=== PATIENT | female | born 1965 | race Two or more races ===

== ENCOUNTER 2017-04-06 16:27 | Emergency (ER) | payer MEDICAID, OTHER ==
[~2017-04-06] VITALS: Ht 170.2 cm; Wt 72.6 kg
[~2017-04-06 16:27] MED LIST: ROSU10TA PO
--- NOTE | 2017-04-06 16:54 | NUR ---
Hep-Lock started; labs drawn and sent to lab.
--- NOTE | 2017-04-06 16:54 | NUR ---
The patient was brought by her friend to ER; the chief complaint of chest pain, which started an hour and a half ago.. The patient describes the pain as pressure-like; 5/10 in severity.
[2017-04-06] MEDS ORDERED: LORAZEPAM INJ 2 MG/ML VIAL IV ONE (17:00)
[2017-04-06] MEDS ORDERED: ONDANSETRON HCL/PF 4 MG/2 ML VIAL IVP ONE (17:00)
[2017-04-06] MEDS ORDERED: ASPIRIN 325 MG TABLET PO ONE (17:00)
[2017-04-06 17:22] LABS: INR 0.85 (0.87-1.13); PROTHROMBIN TIME 8.8 SECS (9.5-12.7)
[2017-04-06 17:27] LABS: TROPONIN I < 0.017 ng/mL (0.00-0.056)
[2017-04-06 17:40] LABS: CALCIUM, SERUM 8.7 mg/dL (8.5-10.1); CARBON DIOXIDE 23 mmol/L (21-32); CHLORIDE 101 mmol/L (98-107); CREATININE 0.7 mg/dL (0.6-1.3); GLUCOSE 95 mg/dL (74-106); POTASSIUM 3.8 mmol/L (3.5-5.1); SODIUM SERUM 133 mmol/L (136-145); UREA NITROGEN, BLOOD 13 mg/dL (7-18)
[2017-04-06] MEDS ORDERED: ASPIRIN 325 MG TABLET ONE (17:49)
[2017-04-06] MEDS ORDERED: ONDANSETRON HCL/PF 4 MG/2 ML VIAL ONE (17:49)
[2017-04-06] MEDS ORDERED: LORAZEPAM INJ 2 MG/ML VIAL ONE (17:49)
[2017-04-06] MEDS: IV NS 0.9% 1,000 ML BAG IV ONE ×2 (17:54→18:15)
--- NOTE | 2017-04-06 17:55 | NUR ---
PATIENT REFUSED ALL MEDICATION ORDERES. MD FARLEY MADE AWARE
[2017-04-06 18:45] VITALS: BP 122/85
--- NOTE | 2017-04-06 18:52 | NUR ---
IV removed. Catheter intact and site benign. Pressure and 4x4 applied to site. No bleeding noted.Patient discharged to home in stable condition. Written and verbal after care instructions given. Patient verbalizes understanding of instruction.
== END 2017-04-06 18:56 | disposition home or self-care (01) ==
LOC: ER 16:29
DX: R07.89 Other chest pain (principal); M54.9 Dorsalgia, unspecified; G89.29 Other chronic pain
CPT/HCPCS: 36415; 71010; 80048; 84484; 85730; 93005 ×2; 96360; 99285; A4606; J7030; Z7610; J2060; J2405